=== PATIENT | female | born 1965 | race Caucasian/White ===

== ENCOUNTER 2025-05-02 11:11 | Outpatient (CLI) | payer OTHER, SELFPAY ==
--- NOTE | 2025-05-02 11:15 | CRLHL7_ITS ---
For Patients: As a result of the Century Cures Act, medical imaging exams and procedure reports are released immediately into your electronic medical record. You may view this report before your referring provider. If you have questions, please contact your health care provider. BILATERAL BREAST MRI WITHOUT AND WITH GADOLINIUM CLINICAL HISTORY: Large lipoma right breast INDICATION FOR BREAST MRI: Surgical planning for large lipoma COMPARISON STUDIES: Bilateral mammogram April 04, 2025, February 26, 2024, February 13, 2023 CONTRAST: Twenty-five mL Dotarem IV. TECHNIQUE: The patient was positioned prone using a breast coil. Multiple imaging sequences were obtained using 1-1.5 mm thick slices with no gap. The image sequences include T2-weighted STIR in the axial plane, T1-weighted nonfat-saturated gradient echo in the axial plane, pre- and post-contrast T1-weighted FLASH 3D with fat suppression in the axial plane, and T1-weighted FLASH high resolution 3D with fat suppression in the sagittal plane. Image post-processing was performed on a EVOF[employer] workstation. Complex 3D rendering including maximum intensity projections (MIPS) and volumetric renderings were obtained to optimize visualization of the extent of pathology and relationship to the nipple, skin, and chest wall. This aids in determining feasibility of breast conservation surgery. Subtraction, multiplanar reconstruction, mean curve determination, and angiogenesis mapping were also performed. The study was technically adequate. FINDINGS: Amount of Fibroglandular Tissue: Almost entirely fat Breast Background Enhancement: Minimal RIGHT Breast: Large lipoma anterior right breast 14 x 9.5 x 13.7 cm. Areas of fat necrosis within as depicted on the mammogram. No suspicious enhancement. LEFT Breast:. No suspicious enhancement. Lymph Nodes: No suspicious lymph nodes IMPRESSIONS AND RECOMMENDATIONS: 1. Large fatty mass right breast containing areas of fat necrosis. Measurement on MRI 14 x 9.5 x 13.7 cm. This may represent a lipoma however a low-grade liposarcoma could have a similar appearance. 2. No suspicious enhancement in either breast. BI-RADS: 2-benign Dictated by Alda Patel MD @ 05/03/2025 4:46:16 PM (Electronically Signed)
== END 2025-05-02 11:12 | disposition home or self-care (01) ==
LOC: MRI 11:11
PROVIDERS: PCP Family Medicine; Visit Provider Surgery
DX: D17.1 Benign lipomatous neoplasm of skin and subcutaneous tissue of trunk (principal); N63.10 Unspecified lump in the right breast, unspecified quadrant
CPT/HCPCS: 77049; A9575

== ENCOUNTER 2025-05-12 07:27 | Day surgery (SDC) | payer OTHER, SELFPAY ==
[2025-05-12 07:57] VITALS: BMI 38.9
[2025-05-12 08:00] VITALS: BP 138/66; PULSE 66; RESP 16; TEMP 37.1; O2SAT 95
[2025-05-12] MEDS: LACTATED RINGERS 500 ML 500 ML 125 ML IV (08:13)
--- NOTE | 2025-05-12 08:29 | W.PM.H&PU ---
History & Physical Update History & Physical Update H&P Reviewed and patient assessed: No changes noted
[2025-05-12] MEDS: CLINDAMYCIN 900 MG/50 ML-D5W IVPB (08:46)
--- NOTE | 2025-05-12 08:58 | P.ANES_ITS ---
Anesthesia Charges Start Date/Time Anesthesia Start Date: 05/12/25 Anesthesia Start Time: 08:44 Stop Date/Time Anesthesia Stop Date: 05/12/25 Anesthesia Stop Time: 09:37 Coding CPT Codes CPT Codes: ANESTH SKIN EXT/PER/ATRUNK - 96974 ([id number]) P3 - PATIENT W/SEVERE SYS DISEASE, QK - SECTION SUPERVISOR 2-4 CNCRNT ANES PROC, QX - TAKE UP OPERATOR SVC W/ MD MED DIRECTION
--- NOTE | 2025-05-12 08:58 | W.ANESCHARGE ---
Anesthesia Charges Start Date/Time Anesthesia Start Date: 05/12/25 Anesthesia Start Time: 08:44 Stop Date/Time Anesthesia Stop Date: 05/12/25 Anesthesia Stop Time: 09:37 Coding CPT Codes CPT Codes: ANESTH SKIN EXT/PER/ATRUNK - 48786 ([id number]) P3 - PATIENT W/SEVERE SYS DISEASE, QK - FORK LIFT MECHANIC 2-4 CNCRNT ANES PROC, QX - SNAKER DRIVING HORSES SVC W/ MD MED DIRECTION
[2025-05-12] MEDS: LIDOCAINE 1% MDV 20 ML INJECTION (09:01)
[2025-05-12] MEDS: BUPIVACAINE 0.25% 30 ML INJECTION (09:01)
--- NOTE | 2025-05-12 09:35 | P.ANES_ITS ---
Anesthesia Charges Start Date/Time Anesthesia Start Date: 05/12/25 Anesthesia Start Time: 08:44 Stop Date/Time Anesthesia Stop Date: 05/12/25 Anesthesia Stop Time: 09:37 Coding CPT Codes CPT Codes: ANESTH SKIN EXT/PER/ATRUNK - 95483 ([id number]) P3 - PATIENT W/SEVERE SYS DISEASE, QK - SCHOLARSHIP COUNSELOR 2-4 CNCRNT ANES PROC, QX - FURNITURE ASSEMBLER AND INSTALLER SVC W/ MD MED DIRECTION
--- NOTE | 2025-05-12 09:35 | W.ANESCHARGE ---
Anesthesia Charges Start Date/Time Anesthesia Start Date: 05/12/25 Anesthesia Start Time: 08:44 Stop Date/Time Anesthesia Stop Date: 05/12/25 Anesthesia Stop Time: 09:37 Coding CPT Codes CPT Codes: ANESTH SKIN EXT/PER/ATRUNK - 22031 ([id number]) P3 - PATIENT W/SEVERE SYS DISEASE, QK - GLASS CYLINDER FLANGER 2-4 CNCRNT ANES PROC, QX - ASSOCIATE PROFESSOR OF PHILOSOPHY SVC W/ MD MED DIRECTION
[2025-05-12 09:37] VITALS: BP 122/75; PULSE 60; RESP 16; TEMP 36.2; O2SAT 92
[2025-05-12] MEDS: ACETAMINOPHEN 325 MG TABLET 650 MG PO (09:43)
[2025-05-12 09:45] VITALS: BP 125/76; PULSE 52; RESP 16; O2SAT 98
--- NOTE | 2025-05-12 09:46 | P.GSOP_ITS ---
Operative Note Date of procedure: 05/12/25 Pre-op diagnosis: Right breast mass, lipoma Post-op diagnosis: Same Type of Procedure: Right breast lumpectomy Indications: Patient is a 60-year-old female with a large lipoma of the right breast. Different treatment options were discussed with the patient, as well as additional workup with MRI imaging. Please see consultation note for full discussion. Risks and benefits of operative intervention were discussed at length with the patient. Risks included but was not limited to: Bleeding, i nfection, risk of damage to surrounding structures, possible need for additional procedures, risk of recurrence and postoperative complications such as pneumonia, pulmonary emboli or ND. All questions and concerns were addressed with the patient agreeing to proceed. Procedure Description: After discussing the risks and benefits of the procedure, the patient signed informed consent.? The operative site was marked and the patient was brought to the operating room and placed on the operating table in supine position.? Care was taken to pad the patient's pressure points.?? The patient was then given sedation by anesthesia.?? The operative site was then prepped and draped in the usual sterile fashion.? A time-out was then performed. A mixture of 1% lidocaine and 0.5% Marcaine was used to anesthetize the surgical field. Periareolar incision was made from 6-9 o'clock. Dissection was carried down through cautery. The lipoma was immediately underneath the nipple and encompassed the majority of the right breast. It was circumferentially dissected bluntly and with cautery. A large feeding vein was identified and tied off with 3 0 Vicryl. The mass was able to be removed in 1 piece. It measured 18 x 16 x 7 cm in size. Hemostasis was assured with cautery. The wound was irrigated. The incision was then closed in layers with interrupted 3 0 Vicryl and running 4-0 Monocryl. Exofin was applied over top. An Wilian wrap was applied around the chest for compression. ? The patient was then woken and transported to the recovery area in stable condition. ? The patient tolerated the procedure well. Findings: 18 x 16 x 7 cm lipoma of the right breast. Anesthesia: MAC Surgeon: Sharri Roman MD Estimated blood loss (mL): 5 Additional Specimen Information: Right breast lipoma Condition: stable Disposition: same day
[2025-05-12 10:00] VITALS: BP 127/77; PULSE 53; RESP 16; O2SAT 98
[2025-05-12 10:15] VITALS: BP 128/74; PULSE 57; RESP 16; O2SAT 98
[2025-05-12 10:30] VITALS: BP 128/80; PULSE 58; RESP 16; O2SAT 98
== END 2025-05-12 10:57 | disposition home or self-care (01) ==
PROVIDERS: PCP Family Medicine; Visit Provider Surgery
PROC: (CPT 19120; principal; 2025-05-12 09:00)
DX: D17.1 Benign lipomatous neoplasm of skin and subcutaneous tissue of trunk (principal)
CPT/HCPCS: 19120; 00400; 88304; 88377; J2003; A9270; J0665; J0736; J1100; J2250; J2405; J2704; J3010; J3490; J7120